=== PATIENT | male | born 1950 | race Caucasian/White ===

== ENCOUNTER 2020-01-11 09:56 | Outpatient (CLI) | payer MEDICARE, BC ==
[2020-01-11] MEDS ORDERED: RIVA20TA PO (10:36)
[2020-01-11] MEDS ORDERED: ARIP15TA3 PO (10:36)
[2020-01-11] MEDS ORDERED: BUPR150T8 PO (10:36)
[2020-01-11] MEDS ORDERED: ATEN-27 PO (10:36)
[2020-01-11] MEDS ORDERED: HCTZ25T PO (10:36)
[2020-01-11] MEDS ORDERED: LISI40TA4 PO (10:36)
[2020-01-11] MEDS ORDERED: ROPI0.5T4 PO (10:36)
[2020-01-11] MEDS ORDERED: GABA-532 PO (10:36)
[2020-01-11] MEDS ORDERED: ATOR40TA PO (10:36)
[2020-01-11 11:48] LABS: BASOPHILS # (AUTO) 0.1 X10'3 (0-0.2); BASOPHILS % (AUTO) 0.9 % (0-1); EOSINOPHILS # (AUTO) 0.1 X10'3 (0-0.9); EOSINOPHILS % (AUTO) 1.5 % (0-6); LYMPHOCYTES # (AUTO) 1.5 X10'3 (1.1-4.8); LYMPHOCYTES % (AUTO) 23.6 % (21-51); MEAN CORPUSCULAR HEMOGLOBIN 30.3 PG (27.0-31.0); MEAN CORPUSCULAR HGB CONC 34.2 g/dL (33.0-36.5); MEAN CORPUSCULAR VOLUME 88.5 FL (78-98); MEAN PLATELET VOLUME 7.7 FL (7.4-10.4); MONOCYTES # (AUTO) 0.6 X10'3 (0-0.9); MONOCYTES % (AUTO) 9.2 % (2-12); NEUTROPHILS # (AUTO) 4.1 X10'3 (1.8-7.7); NEUTROPHILS % (AUTO) 64.8 % (42-75); PRE OP HEMATOCRIT 49.9 % (42.0-52.0); PRE OP HEMOGLOBIN 17.1 g/dL (14.0-17.9); PRE OP PLATELET COUNT 177 X10'3 (140-440); RED BLOOD COUNT 5.63 X10'6 (4.70-6.10); RED CELL DISTRIBUTION WIDTH 14.1 % (11.5-14.5)
[2020-01-11 12:03] LABS: PRE OP INR 1.1 INR; PRE OP PROTIME 11.5 SECONDS (9.0-12.0)
[2020-01-11 12:05] LABS: ALBUMIN 3.6 G/DL (3.4-5.0); ALBUMIN/GLOBULIN RATIO 1.1 (1.1-1.5); ALKALINE PHOSPHATASE 80 IU/L (46-116); BLOOD UREA NITROGEN 18 MG/DL (7-18); BUN/CREATININE RATIO 11.8 (5.4-32.0); CALCIUM 8.6 MG/DL (8.5-10.1); CHLORIDE 105 MMOL/L (99-107); CREATININE 1.53 MG/DL (0.60-1.10); PRE OP ALT 20 U/L (30-65); PRE OP ANION GAP 5 (8-16); PRE OP AST 19 U/L (10-37); PRE OP BILIRUB, TOTAL 1.3 MG/DL (0.0-1.0); PRE OP GLUCOSE 96 MG/DL (70-104); PRE OP SODIUM 142 MMOL/L (135-145); TOTAL CARBON DIOXIDE 32.5 MMOL/L (24-32); TOTAL PROTEIN 6.9 G/DL (6.4-8.2); eGFR 45 ML/MIN
== END 2020-01-11 23:59 | disposition home or self-care (01) ==
LOC: PRE-OP 09:56 → EDSTATUS 01-23 10:00
PROVIDERS: ATTEND Orthopaedic Surgery
DX: Z01.818 Encounter for other preprocedural examination (principal); M16.11 Unilateral primary osteoarthritis, right hip
CPT/HCPCS: 36415; 71046; 80053; 85025; 85610; 85730; 86885; 86900; 86901; 87081

== ENCOUNTER 2020-04-10 05:41 | Observation (INO) | payer MEDICARE, BC ==
[2020-04-04 12:59] LABS: BASOPHILS # (AUTO) 0.1 X10'3 (0-0.2); BASOPHILS % (AUTO) 0.9 % (0-1); EOSINOPHILS # (AUTO) 0.1 X10'3 (0-0.9); EOSINOPHILS % (AUTO) 1.6 % (0-6); LYMPHOCYTES # (AUTO) 1.7 X10'3 (1.1-4.8); LYMPHOCYTES % (AUTO) 23.2 % (21-51); MEAN CORPUSCULAR HEMOGLOBIN 30.8 PG (27.0-31.0); MEAN CORPUSCULAR HGB CONC 33.8 g/dL (33.0-36.5); MEAN CORPUSCULAR VOLUME 91.1 FL (78-98); MEAN PLATELET VOLUME 7.6 FL (7.4-10.4); MONOCYTES # (AUTO) 0.6 X10'3 (0-0.9); MONOCYTES % (AUTO) 8.4 % (2-12); NEUTROPHILS # (AUTO) 4.9 X10'3 (1.8-7.7); NEUTROPHILS % (AUTO) 65.9 % (42-75); PRE OP HEMATOCRIT 50.4 % (42.0-52.0); PRE OP PLATELET COUNT 200 X10'3 (140-440); RED BLOOD COUNT 5.54 X10'6 (4.70-6.10); RED CELL DISTRIBUTION WIDTH 13.8 % (11.5-14.5)
[2020-04-04 13:10] LABS: PRE OP INR 1.1 INR; PRE OP PROTIME 11.1 SECONDS (9.0-12.0)
[2020-04-04 13:12] LABS: ALBUMIN 3.9 G/DL (3.4-5.0); ALBUMIN/GLOBULIN RATIO 1.2 (1.1-1.5); ALKALINE PHOSPHATASE 80 IU/L (46-116); BLOOD UREA NITROGEN 18 MG/DL (7-18); BUN/CREATININE RATIO 11.5 (5.4-32.0); CALCIUM 8.9 MG/DL (8.5-10.1); CHLORIDE 104 MMOL/L (99-107); CREATININE 1.57 MG/DL (0.60-1.10); PRE OP ALT 28 U/L (30-65); PRE OP ANION GAP 7 (8-16); PRE OP AST 23 U/L (10-37); PRE OP BILIRUB, TOTAL 1.6 MG/DL (0.0-1.0); PRE OP GLUCOSE 99 MG/DL (70-104); PRE OP SODIUM 141 MMOL/L (135-145); TOTAL CARBON DIOXIDE 29.9 MMOL/L (24-32); TOTAL PROTEIN 7.2 G/DL (6.4-8.2); eGFR 44 ML/MIN
[~2020-04-10] VITALS: Ht 190.5 cm; Wt 122.5 kg
[2020-04-10] VITALS (19 sets, daily range): BP systolic 89–129; BP diastolic 42–80
[~2020-04-10 05:41] MED LIST: ARIP15TA3 PO; ATEN-27 PO; ATOR40TA PO; BUPR150T8 PO; DOCUMENT DATE & TIME OF BETA-BLOCKER PO ONE; HCTZ25T PO; LISI40TA4 PO; RIVA20TA PO; ROPI0.5T4 PO; acetaminophen 325mg tablet PO ONE; ceFAZolin inj. 3,000 MG in normal saline 100ml IV soln 100 ML IV ONE; celeCOXIB 100mg capsule PO ONE; famotidine 20mg tablet PO ONE; gabapentin 300mg capsule PO ONE; metoclopramide 5 mg/ml inj IV ONE; oxyCODONE SR 10mg (sust. release) tab -2 tabs (20mg) PO ONE; tranexamic acid 1gm/0.7% sal. 100 ML IV ONE; vancomycin 1,500 MG in NS 300ml IV soln IV ONE
[2020-04-10] MEDS: ringers solution, lacted 1,000 ML IV SCH ×3 (06:24→17:57)
[2020-04-10] MEDS ORDERED: LIDOcaine 1% (10mg/ml) 2ml vial ONE (06:26)
[2020-04-10] MEDS ORDERED: epiNEPHrine 1 mg/ml inj ONE (06:39)
[2020-04-10] MEDS ORDERED: cloNIDine hcl/PF 100mcg/ml inj ONE (06:39)
[2020-04-10] MEDS ORDERED: ROPIVAcaine 0.5% (5mg/ml) 30ml vial ONE (06:39)
[2020-04-10] MEDS ORDERED: vancomycin 1,000mg inj ONE (06:39)
[2020-04-10] MEDS ORDERED: ketorolac trometh. 30mg/ml inj. ONE (06:39)
[2020-04-10] MEDS ORDERED: magnesium hydroxide 30ml (MOM) UD suspension PO PRN (06:45)
[2020-04-10] MEDS ORDERED: ondansetron/PF 4mg/2ml inj IV PRN ×2 (06:45→08:50)
[2020-04-10] MEDS ORDERED: diphenhydrAMINE 25mg capsule PO PRN ×2 (06:45)
[2020-04-10] MEDS ORDERED: acetaminophen 325mg tablet PO PRN (06:45)
[2020-04-10] MEDS ORDERED: bisacodyl 10mg suppository rectal RC PRN (06:45)
[2020-04-10] MEDS ORDERED: HYDROmorphone inj. 0.5 MG/0.5 ML DISP.SYRIN IV PRN (06:45)
[2020-04-10] MEDS ORDERED: HYDROcodone/acetaminophen 10/325mg tab PO PRN (06:45)
[2020-04-10] MEDS ORDERED: tranexamic acid inj. 1,000 MG in normal saline 100ml IV soln 100 ML IV ONE ×2 (06:45→12:45)
[2020-04-10] MEDS ORDERED: HYDROmorphone 1 mg/ml syringe IV PRN (06:45)
[2020-04-10] MEDS: multivitamins, therapeutics tablet PO SCH (08:00)
[2020-04-10] MEDS: ascorbic acid 500mg tablet PO SCH ×2 (08:00→20:49)
[2020-04-10] MEDS ORDERED: buPROPion SR 150mg tablet PO SCH ×2 (08:00→10:25)
[2020-04-10] MEDS: gabapentin 300mg capsule PO SCH ×3 (08:00→20:49)
[2020-04-10] MEDS ORDERED: fentaNYL/PF 50MCG/1 ML 2ML syringe ONE (08:11)
[2020-04-10] MEDS ORDERED: MIDAZolam 5mg/5ml vial ONE (08:11)
[2020-04-10] MEDS ORDERED: ringers solution, lacted 1,000 ML IV SCH (08:48)
[2020-04-10] MEDS ORDERED: morphine 2 MG/ML inj. syringe IV PRN (08:50)
[2020-04-10] MEDS ORDERED: proCHLORperazine 10 MG/2 ml inj IV PRN (08:50)
[2020-04-10] MEDS ORDERED: morphine 4 MG/ML inj SYRINge IV PRN (08:50)
[2020-04-10] MEDS ORDERED: meperidine/PF 25mg/ml syringe IV PRN ×3 (08:50)
--- NOTE | 2020-04-10 09:35 | NUR ---
RECEIVED FROM OR VIA BED WITH OHFT ACCOMPANIED BY ANESTHESIOLOGIST DR HARLEY, REPORT GIVEN. 18 GAUGE PIV R WRIST PATENT AND RUNNING LR AT 100 ML/HR. PT DROWSY YET AROUSES EASILY WITH NO COMPLAINT OF PAIN AT THIS TIME. MUE, SPINAL LEVEL AT UMBILICUS. PEDAL PULSES PRESENT, RIGHT WITH DOPPLER, GOOD CAP REFILL, SKIN PINK AND WARM, ABD SOFT. RIGHT HIP RYAN DRESSING CDI WITH SCDS ON AND R KNEE IMMOBILIZER IN PLACE.
--- NOTE | 2020-04-10 10:45 | NUR ---
TRANSPORTED VIA BED WITH OHFT, REPORT GIVEN AND LEFT IN CARE OF ORTHO NURSE. 18 GAUGE PIV R WRIST PATENT AND RUNNING LR AT 100 ML/HR. PT AWAKE AND ALERT WITH NO COMPLAINT OF PAIN AT THIS TIME. MUE, SPINAL LEVEL AT UMBILICUS. PEDAL PULSES PRESENT, RIGHT WITH DOPPLER, GOOD CAP REFILL, SKIN PINK AND WARM, ABD SOFT. RIGHT HIP RYAN DRESSING CDI WITH SCDS ON AND R KNEE IMMOBILIZER IN PLACE.
[2020-04-10] MEDS: potassium cl 20mEq in 1/2 NS 1,000 ML IV SCH ×3 (14:11→22:44)
[2020-04-10] MEDS ORDERED: cefazolin/dext.iso 2gm/100ml 100 ML IV SCH (16:00)
--- NOTE | 2020-04-10 18:30 | NUR ---
Problems reprioritized. Patient report given, questions answered & plan of care reviewed with YENNY Beltran.
--- NOTE | 2020-04-10 19:11 | NUR ---
Report rec'd from kishore Gomez.
[2020-04-10] MEDS: atenolol 25mg tablet PO SCH (20:00)
[2020-04-10] MEDS ORDERED: VANCOMYCIN 1,500MG inj. 1,500 MG in normal saline 500ml IV soln 500 ML IV SCH (20:00)
[2020-04-10] MEDS: HYDROchlorothiazide 25mg tablet PO SCH (20:47)
[2020-04-10] MEDS: aripiprazole 5mg tablet PO SCH (20:48)
[2020-04-10] MEDS: rivaroxaban 20mg tablet PO SCH (20:49)
[2020-04-10] MEDS: lisinopril 10 MG tablet PO SCH (20:50)
[2020-04-10] MEDS: ROPINIRole 0.25mg tablet PO SCH (20:50)
[2020-04-10] MEDS: sennosides 8.6mg tablet PO SCH (20:50)
[2020-04-10] MEDS: atorvastatin 10mg tablet PO SCH (20:54)
[2020-04-10] MEDS ORDERED: ceFAZolin/D5W- 1GM premix 50 ML IV SCH (23:44)
[2020-04-10] MEDS ORDERED: ceFAZolin/D5W- 1GM premix 100 ML IV SCH (23:44)
[2020-04-11 02:00] VITALS: BP 135/78
[2020-04-11] MEDS: HYDROcodone/acetaminophen 10/325mg tab PO PRN ×3 (05:42→20:14)
--- NOTE | 2020-04-11 06:30 | NUR ---
Patient in room ORTHO 4011. I have received report from Ruby and had the opportunity to ask questions and assume patient care.
--- NOTE | 2020-04-11 06:32 | NUR ---
REPORT GIVEN TO YENNY PARKER.
--- NOTE | 2020-04-11 06:35 | NUR ---
Patient in room ORTHO 4011. I have received report from Ruby RAMON and had the opportunity to ask questions and assume patient care.
[2020-04-11] MEDS: potassium cl 20mEq in 1/2 NS 1,000 ML IV SCH ×3 (06:44→22:44)
[2020-04-11 06:56] LABS: BASOPHILS # (AUTO) 0.1 X10'3 (0-0.2); BASOPHILS % (AUTO) 0.9 % (0-1); EOSINOPHILS # (AUTO) 0.1 X10'3 (0-0.9); EOSINOPHILS % (AUTO) 1.5 % (0-6); HEMATOCRIT 40.9 % (42.0-52.0); HEMOGLOBIN 13.7 g/dl (14.0-17.9); LYMPHOCYTES # (AUTO) 1.3 X10'3 (1.1-4.8); LYMPHOCYTES % (AUTO) 20.1 % (21-51); MEAN CORPUSCULAR HEMOGLOBIN 30.5 PG (27.0-31.0); MEAN CORPUSCULAR HGB CONC 33.6 g/dL (33.0-36.5); MEAN CORPUSCULAR VOLUME 90.9 FL (78-98); MEAN PLATELET VOLUME 7.6 FL (7.4-10.4); MONOCYTES # (AUTO) 0.7 X10'3 (0-0.9); MONOCYTES % (AUTO) 11.5 % (2-12); NEUTROPHILS # (AUTO) 4.2 X10'3 (1.8-7.7); PLATELET COUNT 153 X10'3 (140-440); RED CELL DISTRIBUTION WIDTH 13.8 % (11.5-14.5); WHITE BLOOD COUNT 6.3 X10'3 (4.5-11.0)
[2020-04-11 07:11] LABS: ANION GAP 8 (8-16); CHLORIDE 105 MMOL/L (99-107); POTASSIUM 3.8 MMOL/L (3.5-5.1); SODIUM 140 MMOL/L (135-145); TOTAL CARBON DIOXIDE 27.4 MMOL/L (24-32)
[2020-04-11] MEDS: HYDROchlorothiazide 25mg tablet PO SCH (08:00)
[2020-04-11] MEDS: atorvastatin 10mg tablet PO SCH (08:37)
[2020-04-11] MEDS: aripiprazole 5mg tablet PO SCH (08:37)
[2020-04-11] MEDS: multivitamins, therapeutics tablet PO SCH (08:38)
[2020-04-11] MEDS: ascorbic acid 500mg tablet PO SCH ×2 (08:38→20:15)
[2020-04-11] MEDS: gabapentin 300mg capsule PO SCH ×3 (08:38→20:06)
[2020-04-11] MEDS: atenolol 25mg tablet PO SCH ×2 (08:38→20:00)
[2020-04-11 10:00] VITALS: BP 98/56
--- NOTE | 2020-04-11 11:35 | NUR ---
Per physical therapy note, pt would benefit from another day inpatient. Called Dr. Breann Badillo office, spoke with Francheska. Per Ammy, she will speak with Dr. Badillo and advise of the recommendation from physical therapy.
--- NOTE | 2020-04-11 13:21 | NUR ---
Joint Replacement Consult: Pt seen by CY for written/verbal high protein ed w/ RD contact information provided. Pt is agreeable to nakia DUFFY; dietary notified. Addendum: 04/11/20 at [address] Amended: Links added.
[2020-04-11 14:00] VITALS: BP 86/55
[2020-04-11 16:41] VITALS: BP 93/68
[2020-04-11 18:00] VITALS: BP 93/68
--- NOTE | 2020-04-11 18:28 | NUR ---
Gave report to socorro Cox RN
[2020-04-11] MEDS: buPROPion SR 150mg tablet PO SCH (20:00)
[2020-04-11] MEDS: rivaroxaban 20mg tablet PO SCH (20:12)
[2020-04-11] MEDS: ROPINIRole 0.25mg tablet PO SCH (20:14)
[2020-04-11] MEDS: sennosides 8.6mg tablet PO SCH (20:14)
[2020-04-11] MEDS: celeCOXIB 100mg capsule PO SCH (20:14)
[2020-04-11] MEDS: lisinopril 10 MG tablet PO SCH (20:20)
[2020-04-11 22:00] VITALS: BP 90/55
[2020-04-12] MEDS: HYDROcodone/acetaminophen 10/325mg tab PO PRN ×2 (03:27→09:30)
[2020-04-12 06:00] VITALS: BP 115/64
[2020-04-12 06:08] LABS: BASOPHILS # (AUTO) 0.1 X10'3 (0-0.2); BASOPHILS % (AUTO) 0.7 % (0-1); EOSINOPHILS # (AUTO) 0.1 X10'3 (0-0.9); EOSINOPHILS % (AUTO) 1.4 % (0-6); HEMATOCRIT 41.3 % (42.0-52.0); HEMOGLOBIN 13.8 g/dl (14.0-17.9); LYMPHOCYTES # (AUTO) 1.3 X10'3 (1.1-4.8); MEAN CORPUSCULAR HEMOGLOBIN 30.6 PG (27.0-31.0); MEAN CORPUSCULAR HGB CONC 33.4 g/dL (33.0-36.5); MEAN CORPUSCULAR VOLUME 91.5 FL (78-98); MEAN PLATELET VOLUME 7.5 FL (7.4-10.4); MONOCYTES # (AUTO) 1.1 X10'3 (0-0.9); MONOCYTES % (AUTO) 13.7 % (2-12); NEUTROPHILS # (AUTO) 5.5 X10'3 (1.8-7.7); NEUTROPHILS % (AUTO) 68.2 % (42-75); PLATELET COUNT 152 X10'3 (140-440); RED BLOOD COUNT 4.51 X10'6 (4.70-6.10); RED CELL DISTRIBUTION WIDTH 13.5 % (11.5-14.5); WHITE BLOOD COUNT 8.1 X10'3 (4.5-11.0)
--- NOTE | 2020-04-12 06:10 | NUR ---
Patient in room ORTHO 4011. I have received report from Fallon Arroyo and had the opportunity to ask questions and assume patient care.
--- NOTE | 2020-04-12 06:35 | NUR ---
Problems reprioritized. Patient report given, questions answered & plan of care reviewed with YENNY Guan.
[2020-04-12] MEDS: HYDROchlorothiazide 25mg tablet PO SCH (08:00)
[2020-04-12] MEDS: aripiprazole 5mg tablet PO SCH (09:11)
[2020-04-12] MEDS: celeCOXIB 100mg capsule PO SCH (09:11)
[2020-04-12] MEDS: gabapentin 300mg capsule PO SCH ×2 (09:13→14:13)
[2020-04-12] MEDS: atorvastatin 10mg tablet PO SCH (09:13)
[2020-04-12] MEDS: multivitamins, therapeutics tablet PO SCH (09:14)
[2020-04-12] MEDS: atenolol 25mg tablet PO SCH (09:14)
[2020-04-12] MEDS: ascorbic acid 500mg tablet PO SCH (09:14)
[2020-04-12] MEDS: buPROPion SR 150mg tablet PO SCH (09:14)
[2020-04-12 10:39] VITALS: BP 100/59
--- NOTE | 2020-04-12 18:22 | NUR ---
Reviewed discharge instructions with pt. Pt verbalized understanding. Pt is alert, oriented and able to go home. Pt was wheeled downstairs to be driven home by his spouse.
== END 2020-04-12 18:17 | disposition home or self-care (01) ==
LOC: PAS 05:41 → ORTHO 4S 06:47
PROVIDERS: ADMIT Orthopaedic Surgery; ATTEND Orthopaedic Surgery
DX: Z03.818 Encounter for observation for suspected exposure to other biological agents ruled out (principal); M16.11 Unilateral primary osteoarthritis, right hip
CPT/HCPCS: 27130; 36415; 71046; 72170; 80051; 80053; 82948; 85025; 85610; 85730; 86885; 86900; 86901; 87081; 96365; 96366; 96367; 96375; 97110; 97116; 97161; 97530; 97760; C1776; G0378; J0171; J0690; J0735; J1885; J2001; J2250; J2765; J3010; J3370; J7040; J7120; U0003; A4615; A7000; J2795; J3480

== ENCOUNTER 2020-09-12 17:43 | Emergency (ER) | payer MEDICARE, BC ==
[~2020-09-12] VITALS: Ht 188 cm; Wt 113.6 kg
[~2020-09-12 17:43] MED LIST changes: -DOCUMENT DATE & TIME OF BETA-BLOCKER PO ONE; -acetaminophen 325mg tablet PO ONE; -ceFAZolin inj. 3,000 MG in normal saline 100ml IV soln 100 ML IV ONE; -celeCOXIB 100mg capsule PO ONE; -famotidine 20mg tablet PO ONE; -gabapentin 300mg capsule PO ONE; -metoclopramide 5 mg/ml inj IV ONE; -oxyCODONE SR 10mg (sust. release) tab -2 tabs (20mg) PO ONE; -tranexamic acid 1gm/0.7% sal. 100 ML IV ONE; -vancomycin 1,500 MG in NS 300ml IV soln IV ONE
[2020-09-12] MEDS ORDERED: acetaminophen 325mg tablet PO ONE (18:05)
[2020-09-12] MEDS ORDERED: normal saline 1000ML IV soln IV ONE (18:40)
[2020-09-12 18:49] LABS: BASOPHILS % (AUTO) 0.3 % (0-1); EOSINOPHILS % (AUTO) 0 % (0-6); HEMATOCRIT 42.7 % (42.0-52.0); HEMOGLOBIN 14.3 g/dl (14.0-17.9); LYMPHOCYTES # (AUTO) 0.5 X10'3 (1.1-4.8); LYMPHOCYTES % (AUTO) 11.3 % (21-51); MEAN CORPUSCULAR HEMOGLOBIN 29.3 PG (27.0-31.0); MEAN CORPUSCULAR HGB CONC 33.5 g/dL (33.0-36.5); MEAN CORPUSCULAR VOLUME 87.5 FL (78-98); MEAN PLATELET VOLUME 8.2 FL (7.4-10.4); MONOCYTES # (AUTO) 0.5 X10'3 (0-0.9); MONOCYTES % (AUTO) 10.3 % (2-12); NEUTROPHILS # (AUTO) 3.7 X10'3 (1.8-7.7); NEUTROPHILS % (AUTO) 78.1 % (42-75); PLATELET COUNT 135 X10'3 (140-440); RED BLOOD COUNT 4.88 X10'6 (4.70-6.10); RED CELL DISTRIBUTION WIDTH 13.7 % (11.5-14.5); WHITE BLOOD COUNT 4.7 X10'3 (4.5-11.0)
[2020-09-12 19:02] LABS: ALANINE AMINOTRANSFERASE 19 U/L (12-78); ALBUMIN 2.6 G/DL (3.4-5.0); ALBUMIN/GLOBULIN RATIO 0.7 (1.1-1.5); ALKALINE PHOSPHATASE 48 IU/L (46-116); ANION GAP 8 (8-16); ASPARTATE AMINO TRANSFERASE 39 U/L (10-37); BILIRUBIN,TOTAL 1.4 MG/DL (0.1-1.0); BLOOD UREA NITROGEN 16 MG/DL (7-18); BUN/CREATININE RATIO 12.7 (5.4-32.0); CALCIUM 7.2 MG/DL (8.5-10.1); CHLORIDE 99 MMOL/L (99-107); CREATININE 1.26 MG/DL (0.60-1.10); GLUCOSE 81 MG/DL (70-104); POTASSIUM 3.6 MMOL/L (3.5-5.1); SODIUM 133 MMOL/L (135-145); TOTAL CARBON DIOXIDE 26.1 MMOL/L (24-32); TOTAL PROTEIN 6.2 G/DL (6.4-8.2); eGFR 56 ML/MIN
[2020-09-12 19:35] LABS: C-REACTIVE PROTEIN 14.59 MG/DL (0.0-0.5); FERRITIN 688 NG/ML (26-388); LACTATE DEHYDROGENASE 216 U/L (85-227)
[2020-09-12 20:53] LABS: D-DIMER 1.17 MG/L FEU (0-0.50)
--- NOTE | 2020-09-12 21:04 | NUR ---
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 WAS TOLD THAT SHE NEEDS TO COME SOON POSSIABLE TO PICK PATIENT UP. SHE SAID SHE WILL BE HERE SOON SHE CAN IN THE MORNING. MD AND SEGMENT BLOCK LAYER MADE AWARE
--- NOTE | 2020-09-12 21:33 | NUR ---
TOLD THAT PT IS COVID POSITIVE AND THAT SHE NEEDS TO SELF ISIOLATE WELL AND USE PRECAUTIONS AROUND
[2020-09-12 21:44] LABS: CLARITY,URINE CLEAR (Clear); COLOR,URINE ORANGE (Yellow); GLUCOSE, URINE NEGATIVE (Neg); KETONES,URINE 15 mg/dl (Neg); LEUKOCYTE ESTERASE ,URINE NEGATIVE (Neg); NITRITES, URINE NEGATIVE (Neg); OCCULT BLOOD,URINE MODERATE (Neg); PROTEIN,URINE 100 mg/dl (Neg)
[2020-09-12 21:45] LABS: UA COLLECTION TYPE VOIDED
[2020-09-12 21:49] LABS: BACTERIA,URINE NONE SEEN /HPF (Neg); RBC,URINE 0-2 /HPF (0-2); SQUAMOUS EPITHELIAL CELL,UR FEW /LPF (FEW); WBC,URINE NONE SEEN /HPF (0-4)
--- NOTE | 2020-09-13 00:45 | NUR ---
pt was assisted to the commod and to use urinal, pt was also provided with water
[2020-09-13] MEDS ORDERED: acetaminophen 325mg tablet PO STA (02:04)
--- NOTE | 2020-09-13 02:17 | NUR ---
assisted pt to bedside commode where pt had diarrhea. pt temp 102.2 oral. received verbal order for tylenol 650mg po x1 dose now for fever. order placed
--- NOTE | 2020-09-13 07:53 | NUR ---
CALLED PT'S FOR PICKUP, SHE IS HEADED IN TO GET PT.
--- NOTE | 2020-09-13 10:15 | NUR ---
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 She reports they are just leaving the house in [place] and will be approximately 30 minutes away. Pt will be discharged as soon as possible.
--- NOTE | 2020-09-13 11:26 | NUR ---
Patient is sitting up in the wheelchair, dressed and ready to discharge home when his spouse/family members get here to pick him up. Pt reports feeling mildly improved from when he arrived last night. Pt has stable vitals and reports minimal pain.
[2020-09-13 11:55] VITALS: BP 124/73
== END 2020-09-13 11:57 | disposition home or self-care (01) ==
LOC: ER 17:43
DX: U07.1 COVID-19 (principal); R05 Cough; Z79.899 Other long term (current) drug therapy
CPT/HCPCS: 36415; 71045; 80053; 81001; 82728; 83605; 83615; 84145; 85025; 85379; 85384; 86140; 87040; 87635; 93005; 96360; 96361; 99285; C9803; J7030